=== PATIENT | male | born 1985 | race Caucasian/White ===

== ENCOUNTER → 2024-02-11 13:26 | Outpatient (REF) | payer OTHER, SELFPAY | LOC: RAD 13:26 | PROVIDERS: ATTENDING PHYSICIAN Student in an Organized Health Care Education/Training Program | DX: M54.50 Low back pain, unspecified (principal) | CPT/HCPCS: 72110 ==

== ENCOUNTER → 2024-03-18 08:16 | Outpatient (REF) | payer OTHER, SELFPAY | LOC: HWRCS 08:16 | PROVIDERS: ATTENDING PHYSICIAN Internal Medicine Cardiovascular Disease; FAMILY PHYSICIAN Student in an Organized Health Care Education/Training Program | DX: Z86.79 Personal history of other diseases of the circulatory system (principal); Z15.89 Genetic susceptibility to other disease | CPT/HCPCS: 93306 ==